=== PATIENT | male | born 1980 | race Two or more races ===

== ENCOUNTER 2019-10-12 10:27 | Emergency (ER) | payer SELFPAY ==
[~2019-10-12] VITALS: Ht 170.2 cm; Wt 100.7 kg
--- NOTE | 2019-10-12 10:37 | NUR ---
Pt pushed in wheelchair from triage to room. NADN. Family walking beside. No obvious defecits observed.
[2019-10-12] MEDS ORDERED: MECLIZINE CHEWABLE 25 MG TAB PO ONE (11:00)
[2019-10-12 11:08] LABS: BASOPHILS # (AUTO) 0.02 x10^3/uL (0-0.1); BASOPHILS % (AUTO) 0 % (0-1); EOSINOPHILS # (AUTO) 0.09 x10^3/uL (0-0.4); EOSINOPHILS % (AUTO) 1 % (1-7); LYMPHOCYTES # (AUTO) 1.48 x10^3/uL (1-3.4); LYMPHOCYTES % (AUTO) 15 % (22-44); MD NO; MEAN CORPUSCULAR HGB CONC 32.4 g/dL (33.2-36.2); MEAN CORPUSCULAR VOLUME 89.3 fL (81-97); MEAN PLATELET VOLUME 7.9 fL (7.4-10.4); MONOCYTES % (AUTO) 4 % (2-9); NEUTROPHILS # (AUTO) 7.69 x10^3/uL (1.8-6.8); NEUTROPHILS % (AUTO) 79 % (42-75); PLATELET COUNT 292 x10^3/uL (130-400); RED BLOOD COUNT 5.08 x10^6/uL (4.38-5.82); RED CELL DISTRIBUTION WIDTH 13.3 % (9.4-14.8)
[2019-10-12] MEDS ORDERED: MECLIZINE CHEWABLE 25 MG TAB ONE (11:12)
[2019-10-12] MEDS ORDERED: ONDANSETRON ODT 4 MG ONE (11:12)
[2019-10-12 11:15] LABS: ALBUMIN 3.8 g/dL (3.4-5.0); ANION GAP 6 mmol/L (5-15); CALCIUM 9.4 mg/dL (8.5-10.1); CHLORIDE 105 mmol/L (98-107); CREATININE 1.01 mg/dL (0.7-1.3)
--- NOTE | 2019-10-12 11:24 | NUR ---
LATE NOTE ENTRY DUE TO PT CARE. Pt c/o dizziness for three days with nausea. Pt states, "it feels like I am drunk and the room is spinning and I feel unstable." Pt denies ETOH. Pt resting on gurney connected to NIBP cuff, continous pulse ox monitor, and monitor worker. Bedside rails up x 2 and call light within reach. Spouse at bedside. NADN. No other needs expressed. Medications provided per EMAR.
--- NOTE | 2019-10-12 11:25 | NUR ---
Pt transported on gurney to CT with spouse walking beside. NADN. No needs expressed.
[2019-10-12] MEDS ORDERED: ONDANSETRON ODT 4 MG PO ONE (11:30)
--- NOTE | 2019-10-12 11:46 | NUR ---
Pt back to room from CT. NGUYỄN.
--- NOTE | 2019-10-12 12:16 | NUR ---
BREAK RN: PATIENT AMBULATED DOWN THE JULES WITH A STEADY GAIT. HE STATES THAT HE FEELS LIKE HE IS "PULLING TO THE RIGHT, LIKE I AM DRUNK".
--- NOTE | 2019-10-12 12:19 | NUR ---
AMBULATED PATIENT. PATIENT WAS STEADY ON HIS FEET, NOT GRABBING HAND RAILS, BUT COMPLAINED OF A FEELING THAT HE WAS WANDERING TO THE RIGHT. PT STATED THAT HE FEELS PRETTY SIMILAR TO HE DID PRIOR TO TREATMENT. PT STATED THAT IF HE KEPT LOOKING AHEAD HE DIDN'T FEEL NAUSEATED BUT DOES QUICK HEAD MOVEMENTS. DR. OCHOA NOTIFED. VALIUM PO TO BE ORDERED.
[2019-10-12] MEDS ORDERED: DIAZEPAM 5 MG TABLET ONE (12:22)
[2019-10-12] MEDS ORDERED: DIAZEPAM 5 MG TABLET PO ONE (12:30)
--- NOTE | 2019-10-12 13:05 | NUR ---
Pt ambulates with steady gait and balance. Pt states, "I still feel a little dizzy, it's a little better." EDMD aware. Pt back to gurney. NGUYỄN. No needs expressed.
--- NOTE | 2019-10-12 13:06 | NUR ---
Provided report to TASNEEM Ponce. All questions answered. TASNEEM Ponce to assume care of pt at this time. NADN. No needs expressed.
[2019-10-12 13:15] VITALS: BP 120/81
--- NOTE | 2019-10-12 13:15 | NUR ---
RECEIVED REPORT FROM TASNEEM CABRAL. PT RESTING ON [facility]. GOPI. S. AWARE OF POC FOR DC AND IS AGREEABLE.
== END 2019-10-12 13:24 | disposition home or self-care (01) ==
LOC: ED 11:57
DX: H81.10 Benign paroxysmal vertigo, unspecified ear (principal); H81.399 Other peripheral vertigo, unspecified ear; R51 Headache
CPT/HCPCS: 36415; 70450; 80048; 82040; 82962; 85025; 93005; 99284; Q0162

== ENCOUNTER 2020-05-05 16:15 | Inpatient (IN) | payer OTHER ==
[~2020-05-05] VITALS: Ht 170.2 cm; Wt 97.9 kg
--- NOTE | 2020-05-05 16:57 | NUR ---
PT HERE W/ C/O COUGH SINCE LAST MONDAY AND INTERMITTENT FEVERS. VSLeanen, SHAN. PT RESTING ON [facility] W/ CALL LIGHT IN REACH. AWAITING ED EVAL.
--- NOTE | 2020-05-05 17:33 | NUR ---
PT 86% RA. REQUIRING 2.5L TO MAINTAIN O2 SAT >92%.
--- NOTE | 2020-05-05 17:36 | NUR ---
UPDATED ON PTS O2 REQUIREMENTS.
--- NOTE | 2020-05-05 18:31 | NUR ---
LAB AND RAD IN ROOM.
--- NOTE | 2020-05-05 18:57 | NUR ---
REPORT GIVEN TO SHAWNA BOATENG.
--- NOTE | 2020-05-05 18:58 | NUR ---
REPORT FROM TASNEEM QUIROZ
[2020-05-05 19:00] LABS: BASOPHILS # (AUTO) 0.02 x10^3/uL (0-0.1); BASOPHILS % (AUTO) 0 % (0-1); EOSINOPHILS % (AUTO) 0 % (1-7); LYMPHOCYTES # (AUTO) 1.26 x10^3/uL (1-3.4); LYMPHOCYTES % (AUTO) 12 % (22-44); MD NO; MEAN CORPUSCULAR HEMOGLOBIN 28.2 pg (27.5-34.5); MEAN CORPUSCULAR HGB CONC 32.5 g/dL (33.2-36.2); MEAN CORPUSCULAR VOLUME 86.7 fL (81-97); MEAN PLATELET VOLUME 8.1 fL (7.4-10.4); MONOCYTES # (AUTO) 0.55 x10^3/uL (0.2-0.8); MONOCYTES % (AUTO) 5 % (2-9); NEUTROPHILS # (AUTO) 8.75 x10^3/uL (1.8-6.8); NEUTROPHILS % (AUTO) 83 % (42-75); PLATELET COUNT 225 x10^3/uL (130-400); RED BLOOD COUNT 4.74 x10^6/uL (4.38-5.82)
[2020-05-05 19:03] LABS: ALANINE AMINOTRANSFERASE 44 U/L (12-78); ALBUMIN 3.1 g/dL (3.4-5.0); ANION GAP 5 mmol/L (5-15); CALCIUM 8.1 mg/dL (8.5-10.1); CHLORIDE 103 mmol/L (98-107); CREATININE 0.85 mg/dL (0.7-1.3)
[2020-05-05 19:10] LABS: ALKALINE PHOSPHATASE 102 U/L (45-117); BILIRUBIN,TOTAL 0.2 mg/dL (0.2-1.0); TOTAL PROTEIN 7.8 g/dL (6.4-8.2)
[2020-05-05 19:27] LABS: D-DIMER (DIC) 0.33 ug/mlFEU (0.00-0.52); PROTIME 9.3 Seconds (9.6-11.5)
--- NOTE | 2020-05-05 19:31 | NUR ---
PT RA SATS STILL 85-86%
[2020-05-05] MEDS ORDERED: SODIUM CHLORIDE 0.9% 1,000 ML IV ONE (19:32)
[2020-05-05] MEDS ORDERED: BENZONATATE 100 MG CAPSULE ONE (19:34)
[2020-05-05] MEDS ORDERED: SODIUM CHLORIDE FLUSH 10ML SYR IVF PRN (20:00)
[2020-05-05] MEDS ORDERED: BENZONATATE 100 MG CAPSULE PO ONE (20:00)
[2020-05-05] MEDS ORDERED: BISACODYL 10 MG SUPP PR PRN (20:30)
[2020-05-05] MEDS ORDERED: ONDANSETRON ODT 4 MG PO PRN (20:30)
[2020-05-05] MEDS ORDERED: POLYETHYLENE GLYCOL 17 GM PACKET PO PRN (20:30)
--- NOTE | 2020-05-05 20:34 | NUR ---
PT PROVIDED MEAL FROM [employer]
[2020-05-05] MEDS: GUAIFENESIN/DM 200-20MG, 10ML UDC PO PRN (22:32)
[2020-05-06] MEDS ORDERED: ACETAMINOPHEN 325 MG TABLET ONE ×2 (00:05→19:14)
--- NOTE | 2020-05-06 00:21 | NUR ---
PT PROVIDED HOSPITAL BED
[2020-05-06] MEDS: ACETAMINOPHEN 325 MG TABLET PO PRN ×3 (00:22→23:20)
--- NOTE | 2020-05-06 02:43 | NUR ---
PT RESTING ON HOSPITAL BED WITH EYES CLOSED. VSS. RESPIRATIONS EVEN AND UNLABORED.
[2020-05-06 04:22] LABS: BASOPHILS # (AUTO) 0.03 x10^3/uL (0-0.1); BASOPHILS % (AUTO) 0 % (0-1); EOSINOPHILS % (AUTO) 0 % (1-7); LYMPHOCYTES # (AUTO) 1.44 x10^3/uL (1-3.4); LYMPHOCYTES % (AUTO) 14 % (22-44); MD NO; MEAN CORPUSCULAR HEMOGLOBIN 28.5 pg (27.5-34.5); MEAN CORPUSCULAR HGB CONC 32.9 g/dL (33.2-36.2); MEAN CORPUSCULAR VOLUME 86.7 fL (81-97); MEAN PLATELET VOLUME 7.9 fL (7.4-10.4); MONOCYTES # (AUTO) 0.63 x10^3/uL (0.2-0.8); MONOCYTES % (AUTO) 6 % (2-9); NEUTROPHILS # (AUTO) 8.23 x10^3/uL (1.8-6.8); NEUTROPHILS % (AUTO) 80 % (42-75); PLATELET COUNT 239 x10^3/uL (130-400); RED BLOOD COUNT 4.59 x10^6/uL (4.38-5.82); RED CELL DISTRIBUTION WIDTH 13.2 % (9.4-14.8)
[2020-05-06 04:38] LABS: ANION GAP 3 mmol/L (5-15); CALCIUM 8.2 mg/dL (8.5-10.1); CHLORIDE 105 mmol/L (98-107); CREATININE 0.77 mg/dL (0.7-1.3)
--- NOTE | 2020-05-06 04:44 | NUR ---
PT RESTING ON HOSPITAL BED WITH EYES CLOSED. VSS. RESPIRATIONS EVEN AND UNLABORED.
[2020-05-06] MEDS: SENNA/DOCUSATE TABLET PO SCH (08:41)
[2020-05-06] MEDS: ASCORBIC ACID 500 MG TABLET PO SCH (08:41)
[2020-05-06] MEDS: ZINC SULFATE 220 MG CAPSULE PO SCH (08:41)
[2020-05-06] MEDS: SODIUM CHLORIDE FLUSH 10ML SYR IVF SCH ×3 (08:41→23:13)
[2020-05-06] MEDS: GUAIFENESIN/DM 200-20MG, 10ML UDC PO PRN (08:42)
--- NOTE | 2020-05-06 08:44 | NUR ---
PT PROVIDED WITH BREAKFAST TRAY, MEDICATED PER MAR. MEDICATED WITH ROBITUSSIN PRN PER REQUEST. VSS, NO OTHER NEEDS AT THIS TIME
--- NOTE | 2020-05-06 09:30 | NUR ---
PER BREAK RN, PT ASSISTED TO BR FOR BM. PT BECAME SOB, PT SATING 88% ON 2L, UP TO 3L PT NOW 95%.
--- NOTE | 2020-05-06 13:10 | NUR ---
PER BREAK RN, UPDATED ON POC VIA TELEPHONE. LUNCH TRAY ORDERED FOR PT, VSS, NAD NOTED
--- NOTE | 2020-05-06 14:32 | NUR ---
PT GETTING UP TO USE RESTROOM TO URINATE, COUGHING IN BATHROOM. PT EDUCATED ON NEED FOR REMAINING IN RM AND USE OF URINAL FOR ISOLATION PRECAUTIONS
--- NOTE | 2020-05-06 18:12 | NUR ---
DINNER TRAY PROVIDED. VSS, NAD NOTED
--- NOTE | 2020-05-06 18:34 | NUR ---
PT CALLED ER DESK STATING THAT HER TOLD HER ON THE PHONE THAT HE WAS HAVING A HEART ATTACK AND NO ONE IS TAKING CARE OF HIM. WENT TO CHECK ON THE PT, ASKED PT IF HE WAS HAVING CP OR SYMPTOMS OF HEART ATTACK, PT STATES "NO I TOLD HER THAT TO GET YOU TO GET ME SOME WATER, YOU HAVENT GIVEN ME ANY WATER TODAY" PT CALLED DESK MULTIPLE TIMES THROUGHOUT THE DAY FOR WATER. PT GIVEN WATER ON MULTIPLE OCCASIONS BY SEVERAL STAFF MEMBERS IN ADDITION TO WATER PROVIDED ON EACH MEAL TRAY. PT ADAMENT THAT HE HAS NOT RECIEVED WATER TODAY PT STATES "THERE ARE CAMERAS SHOWING YOU NOT GIVING ME WATER." PT SWEARING TO THIS NURSE "NO YOU FUCKING HAVENT" I EXPLAINED TO PT THAT I WAS NOT GOING TO ARGUE THIS FACT HE HAS RECIEVED WATER. ASKED PT WHAT I COULD DO FOR HIM AT THIS TIME, PT REQUESTING TO SPEAK TO SUP, MAGAZINE WORKER MADE AWARE
--- NOTE | 2020-05-06 19:52 | NUR ---
MT: BOTH AND FAMILY HAS CALLED MULTIPLE TIMES TO ASK ABOUT THE CARE OF THE PT. FAMILY FRIEND (PEARL) WOULD LIKE TO BE UPDATED WHEN POSSIBLE - [phone].
--- NOTE | 2020-05-06 20:20 | NUR ---
PATIENT RESTING COMFORTABLY IN ROOM, RN UPDATED FAMILY AND PATIENT ON PLAN. PATIENTS VSS. RN WILL CONTINUE TO MONITOR. HE COMPLAINED OF A HERNANDEZ, RN GAVE PRN TYLENOL. RN WILL CONTINUE TO MONITOR
--- NOTE | 2020-05-06 21:17 | NUR ---
PATIENT RESTING COMFORTABLY AT THIS TIME, RN GAVE PATIENT TOILETRIES TO WASH UP FOR THE NIGHT. PATIENT WAS TO TRIAL OFF OXYGEN, PATIENT STARTED TO COUGH AND BECAME SOB AGAIN, OXYGEN REAPPLIED. PATIENT HAS CALL MENDOZA AT BEDSIDE. WILL CONTINUE TO MONITOR
--- NOTE | 2020-05-06 21:18 | NUR ---
MT: ADDITIONAL FAMILY MEMBERS HAVE ARRIVED AND REQUESTED TO SEE PT. THEY WERE INFORMED THAT THEY ARE NOT ABLE TO VISIT PT, BUT ARE BEING PUSHY NONETHELESS. MARIALUISA (GRINDING MILL OPERATOR) CURRENTLY OUT IN LOBBY SPEAKING WITH THEM ONCE AGAIN.
[2020-05-06 23:15] VITALS: BP 115/75
[2020-05-07 01:08] VITALS: BP 121/70
[2020-05-07] MEDS: BENZONATATE 100 MG CAPSULE PO PRN ×3 (01:38→19:59)
[2020-05-07 01:40] VITALS: BP 112/72
[2020-05-07] MEDS: ACETAMINOPHEN 325 MG TABLET PO PRN ×2 (06:11→23:15)
[2020-05-07 08:26] VITALS: BP 111/73
[2020-05-07] MEDS: SENNA/DOCUSATE TABLET PO SCH (09:18)
[2020-05-07] MEDS: ZINC SULFATE 220 MG CAPSULE PO SCH (09:18)
[2020-05-07] MEDS: SODIUM CHLORIDE FLUSH 10ML SYR IVF SCH ×2 (09:18→19:59)
[2020-05-07] MEDS: ASCORBIC ACID 500 MG TABLET PO SCH (09:18)
[2020-05-07 14:52] VITALS: BP 117/72
[2020-05-07 21:11] VITALS: BP 109/64
[2020-05-08 02:54] VITALS: BP 104/63
[2020-05-08 08:32] VITALS: BP 111/74
[2020-05-08] MEDS: SENNA/DOCUSATE TABLET PO SCH (08:35)
[2020-05-08] MEDS: ZINC SULFATE 220 MG CAPSULE PO SCH (08:35)
[2020-05-08] MEDS: BENZONATATE 100 MG CAPSULE PO PRN ×2 (08:35→20:49)
[2020-05-08] MEDS: ASCORBIC ACID 500 MG TABLET PO SCH (08:35)
[2020-05-08] MEDS: SODIUM CHLORIDE FLUSH 10ML SYR IVF SCH ×2 (08:37→20:49)
[2020-05-08 12:36] VITALS: BP 119/76
[2020-05-08 17:08] LABS: C-REACTIVE PROTEIN, QUANT 5.5 mg/dL (0.02-0.49)
[2020-05-08 19:11] VITALS: BP 114/71
[2020-05-08] MEDS: MELATONIN 5 MG TABLET PO SCH (21:00)
[2020-05-09 01:16] VITALS: BP 116/76
[2020-05-09 08:36] VITALS: BP 116/68
[2020-05-09] MEDS: ZINC SULFATE 220 MG CAPSULE PO SCH (08:47)
[2020-05-09] MEDS: SODIUM CHLORIDE FLUSH 10ML SYR IVF SCH ×2 (08:47→19:51)
[2020-05-09] MEDS: ASCORBIC ACID 500 MG TABLET PO SCH (08:48)
[2020-05-09] MEDS: SENNA/DOCUSATE TABLET PO SCH (08:48)
[2020-05-09] MEDS ORDERED: CHOLECALCIFEROL 5,000u TAB PO SCH (09:00)
[2020-05-09] MEDS: CHOLECALCIFEROL 5,000u TAB PO SCH (09:06)
[2020-05-09 14:35] VITALS: BP 113/78
[2020-05-09] MEDS: BENZONATATE 100 MG CAPSULE PO PRN (19:51)
[2020-05-09 19:52] VITALS: BP 109/72
[2020-05-09] MEDS: MELATONIN 5 MG TABLET PO SCH (20:53)
[2020-05-10 00:49] VITALS: BP 113/74
[2020-05-10 09:58] VITALS: BP 112/72
[2020-05-10] MEDS: SENNA/DOCUSATE TABLET PO SCH (10:05)
[2020-05-10] MEDS: ZINC SULFATE 220 MG CAPSULE PO SCH (10:05)
[2020-05-10] MEDS: ASCORBIC ACID 500 MG TABLET PO SCH (10:05)
[2020-05-10] MEDS: CHOLECALCIFEROL 5,000u TAB PO SCH (10:05)
[2020-05-10] MEDS: SODIUM CHLORIDE FLUSH 10ML SYR IVF SCH ×2 (10:06→22:15)
[2020-05-10] MEDS: BENZONATATE 100 MG CAPSULE PO PRN ×3 (10:12→22:15)
[2020-05-10 15:06] VITALS: BP 117/77
[2020-05-10 21:56] VITALS: BP 132/80
[2020-05-10] MEDS: MELATONIN 5 MG TABLET PO SCH (22:15)
[2020-05-11 01:02] VITALS: BP 112/63
[2020-05-11 06:54] VITALS: BP 117/66
[2020-05-11] MEDS: SODIUM CHLORIDE FLUSH 10ML SYR IVF SCH (09:00)
[2020-05-11] MEDS: CHOLECALCIFEROL 5,000u TAB PO SCH (09:45)
[2020-05-11] MEDS: SENNA/DOCUSATE TABLET PO SCH (09:45)
[2020-05-11] MEDS: ASCORBIC ACID 500 MG TABLET PO SCH (09:46)
[2020-05-11] MEDS: ZINC SULFATE 220 MG CAPSULE PO SCH (10:00)
[2020-05-11] MEDS: BENZONATATE 100 MG CAPSULE PO PRN (10:58)
[2020-05-11] MEDS ORDERED: BENZ-17 PO (11:35)
[2020-05-11] MEDS ORDERED: MELA5TAB14 PO (11:35)
[2020-05-11] MEDS ORDERED: CHOL10003 PO (11:35)
[2020-05-11] MEDS ORDERED: ZINC220C7 PO (11:35)
[2020-05-11] MEDS ORDERED: ASCO500T9 PO (11:35)
== END 2020-05-11 13:35 | disposition home or self-care (01) | DRG 177 ==
LOC: ED 20:08 → EDIP 20:09 → ED 20:56 → 4NW 05-06 22:36
PROVIDERS: ADMIT Internal Medicine; ATTEND Internal Medicine
DX: U07.1 COVID-19 (principal); J12.89 Other viral pneumonia; J96.01 Acute respiratory failure with hypoxia; E87.1 Hypo-osmolality and hyponatremia; Z86.19 Personal history of other infectious and parasitic diseases; Z78.9 Other specified health status
CPT/HCPCS: 36415; 71045; 80048; 80053; 82728; 83605; 83615; 84145; 85025; 85049; 85379; 85384; 85610; 85730; 86140; 87040; 87081; 87635; 93005; 99285; G0378